=== PATIENT | female | born 1985 | race Caucasian/White ===

== ENCOUNTER 2018-03-26 21:40 | Emergency (ER) | payer BC ==
[~2018-03-26] VITALS: Ht 165.1 cm; Wt 86.1 kg
--- NOTE | 2018-03-26 22:06 | NUR ---
pt to ed for upper abd pain x 2 hours. cramping and intermittent in nature. 10 weeks . connected to bp and pulse ox. vss. pa to bedside for assessment. awaiting orders.
[2018-03-26 22:22] LABS: BASOPHILS # (AUTO) 0.05 x10^3/uL (0-0.1); BASOPHILS % (AUTO) 1 % (0-1); EOSINOPHILS # (AUTO) 0.68 x10^3/uL (0-0.4); EOSINOPHILS % (AUTO) 7 % (1-7); LYMPHOCYTES # (AUTO) 1.92 x10^3/uL (1-3.4); LYMPHOCYTES % (AUTO) 20 % (22-44); MD NO; MEAN CORPUSCULAR HEMOGLOBIN 27.4 pg (27.0-34.8); MEAN CORPUSCULAR HGB CONC 33.8 g/dL (32.4-35.8); MEAN CORPUSCULAR VOLUME 81.2 fL (80-100); MEAN PLATELET VOLUME 9.9 fL (7.4-10.4); MONOCYTES # (AUTO) 0.42 x10^3/uL (0.2-0.8); MONOCYTES % (AUTO) 4 % (2-9); NEUTROPHILS # (AUTO) 6.72 x10^3/uL (1.8-6.8); NEUTROPHILS % (AUTO) 69 % (42-75); PLATELET COUNT 242 x10^3/uL (130-400); RED CELL DISTRIBUTION WIDTH 14.9 % (9.6-15.2)
[2018-03-26 22:35] LABS: ALANINE AMINOTRANSFERASE 13 U/L (12-78); ALBUMIN 3.3 g/dL (3.4-5.0); ANION GAP 6 mmol/L (5-15); CALCIUM 8.7 mg/dL (8.5-10.1); CHLORIDE 109 mmol/L (98-107); CREATININE 0.67 mg/dL (0.55-1.02)
--- NOTE | 2018-03-26 22:35 | NUR ---
PT UP TO RESTROOM WTIH STEADY GAIT. NO ASSISTANCE NEEDED. UA COLLECTED AND SENT. PPT TO US AT THIS TIME.
[2018-03-26 22:47] LABS: MICROSCOPIC NOT IND
[2018-03-26 22:50] LABS: CULTURE INDICATED? NO
[2018-03-26 22:52] LABS: ALKALINE PHOSPHATASE 69 U/L (45-117); BILIRUBIN,TOTAL 0.2 mg/dL (0.2-1.0)
--- NOTE | 2018-03-26 22:58 | NUR ---
REPORT RECEIVED, CARE ASSUMED. PT RESTING QUIETLY, DENIES PAIN, AWARE AWAITING RESULTS.
[2018-03-27 00:09] VITALS: BP 130/78
== END 2018-03-27 00:11 | disposition home or self-care (01) ==
LOC: ED 23:45
DX: O26.891 Other specified pregnancy related conditions, first trimester (principal); Z3A.10 10 weeks gestation of pregnancy; R11.0 Nausea; R10.11 Right upper quadrant pain
CPT/HCPCS: 36415; 76801; 80053; 81003; 84702; 84703; 85025; 99284

== ENCOUNTER 2018-08-03 15:15 | Outpatient (CLI) | payer BC ==
[~2018-08-03] VITALS: Ht 165.1 cm; Wt 104.1 kg
[2018-08-03 15:47] VITALS: BP 129/65
[2018-08-03 16:09] LABS: MICROSCOPIC INDICATED
[2018-08-03 16:12] LABS: CREATININE,URINE RANDOM 38.8 mg/dL
[2018-08-03 16:16] LABS: BASOPHILS # (AUTO) 0.04 x10^3/uL (0-0.1); BASOPHILS % (AUTO) 0 % (0-1); EOSINOPHILS # (AUTO) 0.33 x10^3/uL (0-0.4); EOSINOPHILS % (AUTO) 3 % (1-7); LYMPHOCYTES # (AUTO) 1.57 x10^3/uL (1-3.4); LYMPHOCYTES % (AUTO) 13 % (22-44); MD NO; MEAN CORPUSCULAR HEMOGLOBIN 23.4 pg (27.0-34.8); MEAN CORPUSCULAR HGB CONC 30.7 g/dL (32.4-35.8); MEAN CORPUSCULAR VOLUME 76.4 fL (80-100); MEAN PLATELET VOLUME 9.1 fL (7.4-10.4); MONOCYTES # (AUTO) 0.61 x10^3/uL (0.2-0.8); MONOCYTES % (AUTO) 5 % (2-9); NEUTROPHILS # (AUTO) 9.97 x10^3/uL (1.8-6.8); NEUTROPHILS % (AUTO) 80 % (42-75); PLATELET COUNT 272 x10^3/uL (130-400); RED BLOOD COUNT 3.97 x10^6/uL (3.82-5.3); RED CELL DISTRIBUTION WIDTH 14.1 % (9.6-15.2)
[2018-08-03 16:29] LABS: ALBUMIN 2.7 g/dL (3.4-5.0); ANION GAP 10 mmol/L (5-15); CALCIUM 8.2 mg/dL (8.5-10.1); CHLORIDE 110 mmol/L (98-107)
[2018-08-03 16:34] LABS: ALANINE AMINOTRANSFERASE 11 U/L (12-78); ALKALINE PHOSPHATASE 119 U/L (45-117); TOTAL PROTEIN 6.8 g/dL (6.4-8.2)
[2018-08-03 16:44] LABS: BILIRUBIN, DIRECT < 0.1 mg/dL (0.1-0.2); BILIRUBIN,TOTAL < 0.1 mg/dL (0.2-1.0)
[2018-08-03 17:21] LABS: AMPHETAMINE SCREEN, URINE Negative (Negative); BARBITURATE SCREEN, URINE Negative (Negative); BENZODIAZEPINE SCREEN, URINE Negative (Negative); CANNABINOID SCREEN, URINE Negative (Negative); COCAINE SCREEN, URINE Negative (Negative); METHADONE SCREEN, URINE Negative (Negative); OPIATE SCREEN, URINE Negative (Negative)
== END 2018-08-03 17:18 | disposition home or self-care (01) ==
LOC: LDOP 15:15
PROVIDERS: ATTEND Obstetrics & Gynecology
DX: O99.513 Diseases of the respiratory system complicating pregnancy, third trimester (principal); R06.02 Shortness of breath; O26.893 Other specified pregnancy related conditions, third trimester; R03.0 Elevated blood-pressure reading, without diagnosis of hypertension
CPT/HCPCS: 36415; 59025; 80053; 80307; 81001; 82248; 82570; 84156; 84550; 85025; 99211; G0463

== ENCOUNTER 2018-09-25 15:16 | Outpatient (CLI) | payer BC ==
[~2018-09-25] VITALS: Ht 165.1 cm; Wt 115.9 kg
[2018-09-25 15:40] VITALS: BP 126/68
[2018-09-25] MEDS ORDERED: BUPR300T49 PO (16:11)
[2018-09-25] MEDS ORDERED: SERT25TA3 PO (16:12)
[2018-09-25 16:45] LABS: AMPHETAMINE SCREEN, URINE Negative (Negative); BARBITURATE SCREEN, URINE Negative (Negative); BENZODIAZEPINE SCREEN, URINE Negative (Negative); CANNABINOID SCREEN, URINE Negative (Negative); COCAINE SCREEN, URINE Negative (Negative); METHADONE SCREEN, URINE Negative (Negative); OPIATE SCREEN, URINE Negative (Negative)
== END 2018-09-25 16:17 | disposition home or self-care (01) ==
LOC: LDOP 15:16
PROVIDERS: ATTEND Obstetrics & Gynecology
DX: Z34.83 Encounter for supervision of other normal pregnancy, third trimester (principal); Z3A.36 36 weeks gestation of pregnancy
CPT/HCPCS: 59025; 80307; 99211; G0463

== ENCOUNTER 2018-10-13 07:55 | Inpatient (IN) | payer OTHER, BC ==
[~2018-10-13] VITALS: Ht 165.1 cm; Wt 115.9 kg
[~2018-10-13 07:55] MED LIST: BUPR300T49 PO; SERT25TA3 PO
[2018-10-13 08:07] VITALS: BP 134/82
[2018-10-13] MEDS ORDERED: OXYTOCIN 30U/ 0.9% NaCL 500ML 500 ML IV ONE (08:51)
[2018-10-13] MEDS ORDERED: OXYTOCIN 30U/ 0.9% NaCL 500ML 500 ML IV PRN (08:51)
[2018-10-13] MEDS ORDERED: FENTANYL PF 500 MCG, BUPIVACAINE/PF 0.5%, 30ML 62.5 ML in SODIUM CHLORIDE 0.9% 177.5 ML EPIDCONT SCH (08:51)
[2018-10-13] MEDS ORDERED: OXYTOCIN 30U/ 0.9% NaCL 500ML 500 ML ONE ×2 (08:59→22:56)
[2018-10-13] MEDS ORDERED: NEWBORN KIT ONE (08:59)
[2018-10-13] MEDS ORDERED: ONDANSETRON 2MG/ML, 2ML IVPush PRN (09:00)
[2018-10-13] MEDS ORDERED: CALCIUM CARBONATE 500 MG TAB.CHEW PO PRN (09:00)
[2018-10-13] MEDS ORDERED: FENTANYL PF 100 MCG/2ML IVPush PRN (09:00)
[2018-10-13] MEDS ORDERED: FENTANYL PF 100 MCG/2ML IV PRN (09:00)
[2018-10-13] MEDS ORDERED: LACTATED RINGERS 1,000 ML IVBOLUS PRN (09:00)
[2018-10-13] MEDS: LACTATED RINGERS 1,000 ML IV SCH ×2 (09:21→15:16)
[2018-10-13 09:36] LABS: BASOPHILS # (AUTO) 0.03 x10^3/uL (0-0.1); BASOPHILS % (AUTO) 0 % (0-1); EOSINOPHILS # (AUTO) 0.21 x10^3/uL (0-0.4); EOSINOPHILS % (AUTO) 2 % (1-7); LYMPHOCYTES # (AUTO) 1.32 x10^3/uL (1-3.4); LYMPHOCYTES % (AUTO) 14 % (22-44); MD NO; MEAN CORPUSCULAR HEMOGLOBIN 20.7 pg (27.0-34.8); MEAN CORPUSCULAR HGB CONC 30.2 g/dL (32.4-35.8); MEAN CORPUSCULAR VOLUME 68.6 fL (80-100); MEAN PLATELET VOLUME 10.2 fL (7.4-10.4); MONOCYTES # (AUTO) 0.47 x10^3/uL (0.2-0.8); MONOCYTES % (AUTO) 5 % (2-9); NEUTROPHILS % (AUTO) 79 % (42-75); PLATELET COUNT 250 x10^3/uL (130-400); RED BLOOD COUNT 4.37 x10^6/uL (3.82-5.3); RED CELL DISTRIBUTION WIDTH 17.2 % (9.6-15.2)
[2018-10-13] MEDS ORDERED: EPHEDRINE 50 MG/ML, 1ML ONE (14:11)
[2018-10-13] MEDS: EPHEDRINE 50 MG/ML, 1ML IVPush PRN ×2 (14:14→20:20)
[2018-10-13] MEDS ORDERED: ONDANSETRON 2MG/ML, 2ML ONE (15:46)
[2018-10-13] MEDS ORDERED: LACTATED RINGERS 1,000 ML INTUTE PRN (17:30)
[2018-10-13] MEDS ORDERED: LACTATED RINGERS 1,000 ML INTUTE SCH (17:30)
[2018-10-13] MEDS ORDERED: SODIUM CITRATE/CITRIC ACID 15 ML UDC ONE (18:36)
[2018-10-13] MEDS ORDERED: METOCLOPRAMIDE 5 MG/ML, 2ML ONE (18:36)
[2018-10-13] MEDS ORDERED: LIDOCAINE 1%, 20ML ONE (22:01)
[2018-10-13] MEDS: IBUPROFEN 600 MG TABLET PO PRN (22:20)
[2018-10-13] MEDS ORDERED: IBUPROFEN 600 MG TABLET ONE (22:29)
[2018-10-13] MEDS: OXYTOCIN 30U/ 0.9% NaCL 500ML 500 ML IV SCH (22:58)
[2018-10-13] MEDS ORDERED: MISOPROSTOL 200 MCG TABLET PR PRN (23:00)
[2018-10-14 00:20] VITALS: BP 128/80
[2018-10-14 05:10] VITALS: BP 114/66
[2018-10-14 05:37] LABS: MEAN CORPUSCULAR HEMOGLOBIN 20.9 pg (27.0-34.8); MEAN CORPUSCULAR HGB CONC 30.2 g/dL (32.4-35.8); MEAN CORPUSCULAR VOLUME 69.2 fL (80-100); MEAN PLATELET VOLUME 10.2 fL (7.4-10.4); PLATELET COUNT 227 x10^3/uL (130-400); RED BLOOD COUNT 3.96 x10^6/uL (3.82-5.3); RED CELL DISTRIBUTION WIDTH 17.2 % (9.6-15.2)
[2018-10-14 06:08] LABS: BASOPHILS # (AUTO) 0.05 x10^3/uL (0-0.1); BASOPHILS % (AUTO) 0 % (0-1); EOSINOPHILS # (AUTO) 0.04 x10^3/uL (0-0.4); EOSINOPHILS % (AUTO) 0 % (1-7); LYMPHOCYTES # (AUTO) 1.21 x10^3/uL (1-3.4); LYMPHOCYTES % (AUTO) 8 % (22-44); MD SCAN; MONOCYTES # (AUTO) 0.77 x10^3/uL (0.2-0.8); MONOCYTES % (AUTO) 5 % (2-9); NEUTROPHILS # (AUTO) 12.39 x10^3/uL (1.8-6.8); NEUTROPHILS % (AUTO) 86 % (42-75)
[2018-10-14 07:10] VITALS: BP 114/76
[2018-10-14] MEDS: OXYTOCIN 30U/ 0.9% NaCL 500ML 500 ML IV SCH ×2 (08:34→18:34)
[2018-10-14] MEDS: IBUPROFEN 600 MG TABLET PO PRN ×2 (08:52→18:45)
[2018-10-14] MEDS: PRENATAL VIT/IRON/FA 1 EACH TABLET PO SCH (08:52)
[2018-10-14] MEDS: DOCUSATE 100 MG CAPSULE PO PRN (08:52)
[2018-10-14 12:10] VITALS: BP 142/83
[2018-10-14 16:05] VITALS: BP 127/86
[2018-10-14] MEDS ORDERED: DIPH,PERTUSS(ACELL),TET VAC/PF NC IM-VACC ONE ×2 (20:05→22:00)
[2018-10-14 20:30] VITALS: BP 114/76
[2018-10-15] MEDS: IBUPROFEN 600 MG TABLET PO PRN ×2 (01:49→09:01)
[2018-10-15 07:56] VITALS: BP 110/78
[2018-10-15] MEDS: DOCUSATE 100 MG CAPSULE PO PRN (09:01)
[2018-10-15] MEDS: PRENATAL VIT/IRON/FA 1 EACH TABLET PO SCH (09:01)
== END 2018-10-15 15:32 | disposition home or self-care (01) | DRG 807 ==
LOC: LDIP 07:57 → 2NW 23:52
PROVIDERS: ADMIT Obstetrics & Gynecology; ATTEND Obstetrics & Gynecology
PROC: 10E0XZZ Delivery of Products of Conception, External Approach (ICD-10-PCS; principal; 2018-10-13)
PROC: 0KQM0ZZ Repair Perineum Muscle, Open Approach (ICD-10-PCS; 2018-10-13)
PROC: 3E0R3BZ Introduction of Anesthetic Agent into Spinal Canal, Percutaneous Approach (ICD-10-PCS; 2018-10-13)
PROC: 00HU33Z Insertion of Infusion Device into Spinal Canal, Percutaneous Approach (ICD-10-PCS; 2018-10-13)
PROC: 10907ZC Drainage of Amniotic Fluid, Therapeutic from Products of Conception, Via Natural or Artificial Opening (ICD-10-PCS; 2018-10-13)
PROC: 3E033VJ Introduction of Other Hormone into Peripheral Vein, Percutaneous Approach (ICD-10-PCS; 2018-10-13)
DX: O76 Abnormality in fetal heart rate and rhythm complicating labor and delivery (principal); Z37.0 Single live birth; O69.1XX0 Labor and delivery complicated by cord around neck, with compression, not applicable or unspecified; Z3A.39 39 weeks gestation of pregnancy; O70.1 Second degree perineal laceration during delivery
CPT/HCPCS: 36415; 85025; 86850; 86900; 90715; G0378; J2590; J7120